=== PATIENT | female | born 1980 | race Caucasian/White ===

== ENCOUNTER 2017-09-21 12:21 | Emergency (ER) | payer MEDICAID ==
--- NOTE | 2017-09-21 12:40 | EDM.PDOC ---
ED HPI GENERAL MEDICAL PROBLEM - General Chief Complaint: Upper Extremity Injury/Pain Stated Complaint: LT ARM PAIN Time Seen by Provider: 09/21/17 12:24 Source of Information: Reports: Patient History Limitations: Reports: No Limitations - History of Present Illness INITIAL COMMENTS - FREE TEXT/NARRATIVE: History of present illness: []Patient's had one month of left arm pain. Patient denies any trauma and states that she noticed the pain on a vacation in [place]. She does not have a local physician. She denies doing any strenuous physical activity and does not exercise or lift weights. She denies any other muscle pain, numbness, tingling or any neck pain. Review of systems: As per history of present illness and below otherwise all systems reviewed and negative. Past medical history: As per history of present illness and as reviewed below otherwise noncontributory. Surgical history: As per history of present illness and as reviewed below otherwise noncontributory. Social history: No reported history of drug or alcohol abuse. Family history: As per history of present illness and as reviewed below otherwise noncontributory. Physical exam: General: Well developed, well nourished in NAD HEENT: Atraumatic, normocephalic, pupils reactive, negative for conjunctival pallor or scleral icterus, mucous membranes moist, throat clear, neck supple, nontender, trachea midline. Lungs: Clear to auscultation, breath sounds equal bilaterally, chest nontender. Heart: S1S2, regular, negative for clicks, rubs, or JVD. Abdomen: Soft, nondistended, nontender. Negative for masses or hepatosplenomegaly. Negative for costovertebral tenderness. Pelvis: Stable nontender. Genitourinary: Deferred. Rectal: Deferred. Extremities: Atraumatic, full range of motion no external skin lesions, negative for cords or calf pain. Neurovascular unremarkable. Neuro: Awake, alert, oriented. Cranial nerves II through XII unremarkable. Cerebellum unremarkable. Motor and sensory unremarkable throughout. Exam nonfocal. Diagnostics: []X-ray left arm negative for fracture or other bony lesions Therapeutics: [] Impression: []Left arm pain Plan: []Ibuprofen, Tylenol for pain follow-up with primary care. Definitive disposition and diagnosis as appropriate pending reevaluation and review of above. Left Arm Pain Score (Numeric/FACES): 2 - Related Data Allergies Allergy/AdvReac Type Severity Reaction Status Date / Time No Known Allergies Allergy Verified 09/21/17 12:37 Home Meds: Home Meds . [No Known Home Meds] 09/21/17 [History] Review of Systems - Review of Systems Review Of Systems: See Below ED EXAM, GENERAL - Physical Exam Exam: See Below (See history of present illness) Course - Vital Signs Last Recorded V/S: Last Vital Signs Temp 97.8 F 09/21/17 12:32 Pulse 97 09/21/17 12:32 Resp 18 09/21/17 12:32 BP 130/90 09/21/17 12:32 Pulse Ox 97 09/21/17 12:32 - Orders/Labs/Meds Orders: Active Orders 24 hr Category Date Time Status Humerus Lt [CR] Stat Exams 09/21/17 12:34 Taken Departure - Departure Time of Disposition: 13:09 Disposition: Home, Self-Care 01 Condition: Good Clinical Impression: Left arm pain - Discharge Information Referrals: PCP,None [Primary Care Provider] - Forms: ED Department Discharge Additional Instructions: The following information is given to patients seen in the emergency department who are being discharged to home. This information is to outline your options for follow-up care. We provide all patients seen in our emergency department with a follow-up referral. The need for follow-up, as well as the timing and circumstances, are variable depending upon the specifics of your emergency department visit. If you don't have a primary care physician on staff, we will provide you with a referral. We always advise you to contact your personal physician following an emergency department visit to inform them of the circumstance of the visit and for follow-up with them and/or the need for any referrals to a consulting specialist. The emergency department will also refer you to a specialist when appropriate. This referral assures that you have the opportunity for follow-up care with a specialist. All of these measure are taken in an effort to provide you with optimal care, which includes your follow-up. Under all circumstances we always encourage you to contact your private physician who remains a resource for coordinating your care. When calling for follow-up care, please make the office aware that this follow-up is from your recent emergency room visit. If for any reason you are refused follow-up, please contact the [facility] Emergency Department at and asked to speak to the emergency department charge nurse. JACKELIN [facility] Primary [facility] [place] [id number] - My Orders Last 24 Hours: My Active Orders 09/21/17 12:34 Humerus Lt [CR] Stat - Assessment/Plan Last 24 Hours: My Active Orders 09/21/17 12:34 Humerus Lt [CR] Stat
--- NOTE | 2017-09-23 15:39 | CR ---
EXAM DATE: 09/21/17 PATIENT'S AGE: 36 Patient: ADELINA GALLARDO Facility: [place], [place] Site . Site : 1980 Study: XRay Extremity Left humerus [id number]/[id number] 1:01:31 PM Ordering Physician: Herb Mccarthy Final Report: INDICATION: Pain. No injury. TECHNIQUE: Two views of the left humerus. FINDINGS: No bony abnormality identified. No dislocation. No joint effusion at the elbow. Soft tissues are unremarkable. IMPRESSION: Negative left humerus. Dictated by Iggy Martinez MD @ Sep 21 2017 1:08PM (Electronic Signature) Report Signed by Proxy. RYAN
== END 2017-09-21 13:20 | disposition home or self-care (01) ==
LOC: MW.ED 12:21
DX: M79.602 Pain in left arm (principal)
CPT/HCPCS: 73060-26-LT; 73060-LT; 99283